=== PATIENT | female | born 1960 | race Caucasian/White ===

== ENCOUNTER 2017-03-01 20:30 | Emergency (ER) | payer MEDICAID ==
[~2017-03-01 20:30] MED LIST: ACET325T14 PO
[2017-03-05 11:41] LABS: ASPARTATE AMINO TRANSFERASE 11 U/L (15-37); BLOOD UREA NITROGEN 15 mg/dL (7-18)
== END 2017-03-02 02:35 ==
LOC: ED 20:30
DX: L03.116 Cellulitis of left lower limb (principal); R06.00 Dyspnea, unspecified; I11.0 Hypertensive heart disease with heart failure; I50.9 Heart failure, unspecified; R05 Cough
CPT/HCPCS: 36415; 71020; 80053; 83880; 85025; 93005; 93970; 99285

== ENCOUNTER 2017-04-10 11:39 | Emergency (ER) | payer MEDICAID ==
[~2017-04-10] VITALS: Ht 167.6 cm; Wt 101.0 kg
[2017-04-10 11:41] VITALS: BP 139/91
[2017-04-10] MEDS ORDERED: DIPH,PERTUSS(ACELL),TET VAC/PF 0.5 ML IM-VACC ONE ×2 (12:19→12:30)
[2017-04-10] MEDS ORDERED: BACITRACIN ZINC OINT 500U/GM, 0.9 GM ONE (12:20)
== END 2017-04-10 12:43 | disposition home or self-care (01) ==
LOC: ED 12:25
DX: S50.811A Abrasion of right forearm, initial encounter (principal); L03.113 Cellulitis of right upper limb; I10 Essential (primary) hypertension; X58.XXXA Exposure to other specified factors, initial encounter; Y93.89 Activity, other specified; Y99.8 Other external cause status; Y92.89 Other specified places as the place of occurrence of the external cause
CPT/HCPCS: 90471; 90715